=== PATIENT | male | born 1985 | race African-American/Black ===

== ENCOUNTER 2024-03-12 20:16 | Emergency (ER) | payer OTHER ==
[2024-03-12 20:38] VITALS: TEMP 98.4; BMI 25.7
[2024-03-12 22:49] LABS: BASO % 1.1 % (0-2.0); HEMOGLOBIN 14.5 GM/dL (11.7-16.9); LYMPH % 25.8 % (8-40); MCH 28.3 pg (25.7-33.7); MCHC 33.7 g/dl (32.0-35.9); MEAN PLT VOLUME 8.1 fl (7.5-11.1); MONO % 8.1 % (3.8-10.2); PLATELET COUNT 241 10^3/uL (134-434); RBC 5.13 M/mm3 (4.00-5.60); RDW 13.6 % (11.9-15.9); WHITE BLOOD COUNT 6.7 K/mm3 (4.0-10.0)
[2024-03-12 23:00] LABS: INR 1.04 (0.83-1.09)
[2024-03-12 23:02] LABS: ACTIVATED PTT 30.1 SECONDS (25.2-36.5)
[2024-03-12 23:17] LABS: CHLORIDE 112 mmol/L (98-107); SODIUM 143 mmol/L (136-145)
[2024-03-12 23:20] LABS: ALBUMIN 4.2 g/dl (3.4-5.0); ANION GAP 8 mmol/L (4-13); BLOOD UREA NITROGEN 13.4 mg/dL (7-18); CO2 23 mmol/L (21-32); GLUCOSE,RANDOM 96 mg/dL (74-106)
[2024-03-12 23:22] LABS: CREATININE 1.3 mg/dL (0.55-1.3); SGOT/AST 17 U/L (15-37); SGPT/ALT 22 U/L (13-61)
[2024-03-12 23:24] LABS: BILIRUBIN,TOTAL 0.5 mg/dL (0.2-1); TOT PROT 7.8 g/dl (6.4-8.2)
[2024-03-12 23:26] LABS: ALK PHOS 77 U/L (45-117)
[2024-03-13 07:02] VITALS: BP 128/79; PULSE 59; RESP 18
[2024-03-13 09:22] LABS: PH,URINE 5.5 (5.0-8.0); URINE APPEARANCE Clear; URINE BILIRUBIN Negative (NEGATIVE); URINE COLOR Yellow; URINE GLUCOSE (UA) Negative (NEGATIVE); URINE KETONE Negative (NEGATIVE); URINE LEUK ESTERASE Negative (NEGATIVE); URINE NITRITE Negative (NEGATIVE); URINE PROTEIN 1+ (NEGATIVE); URINE UROBILINOGEN 0.2 mg/dL (0.2-1.0)
[2024-03-13 09:26] LABS: PHENCYCLIDINE,URINE NEGATIVE (NEGATIVE)
[2024-03-13 09:27] LABS: URINE AMPHETAMINES NEGATIVE (NEGATIVE); URINE BARBITURATES NEGATIVE (NEGATIVE); URINE BENZODIAZEPINES NEGATIVE (NEGATIVE)
[2024-03-13 09:33] LABS: COCAINE, UR NEGATIVE (NEGATIVE); METHADONE, UR NEGATIVE (NEGATIVE); OPIATES, URI NEGATIVE (NEGATIVE)
[2024-03-13 13:47] LABS: EPI CELLS 9 /uL (0-25.1); HYALINE CASTS 2 /uL (0-3.1); URINE BACTERIA 51 /uL (0-1359); URINE CRYSTALS NONE SEEN /hpf; URINE RBC 12 /uL (0-23.9); URINE WBC 18 /uL (0-25.8)
== END 2024-03-13 10:30 | disposition home or self-care (01) ==
LOC: JER 20:16
DX: F99 Mental disorder, not otherwise specified (principal); R45.851 Suicidal ideations; F41.9 Anxiety disorder, unspecified
CPT/HCPCS: 36415; 80053; 80307; 81003; 85025; 85610; 85730; 93005; 93010; 99284-25